=== PATIENT | male | born 1995 | race Caucasian/White ===

== ENCOUNTER 2017-02-24 16:53 | Observation (INO) | payer OTHER ==
[~2017-02-24] VITALS: Ht 172.7 cm; Wt 107.2 kg
[~2017-02-24 16:53] MED LIST: AMITRIPTYLINE H50 MG PO; DEPAKOTE500 MG PO; DOCUSATE SODIU100 MG PO; DOXYCYCLINE HY100 MG PO; ENALAPRIL MALE2.5 MG PO; FISH OIL CONC1 EACH PO; GEODON40 MG PO; GEODON80 MG PO; K-DUR20 MEQ PO; LEVOTHYROXINE137 MCG PO; METFORMIN HCL1000 M1 PO; MIRALAX255 GM PO; PROPRANOLOL HCL20 MG PO
[2017-02-24 18:01] LABS: HEMATOCRIT 28.1 % (38.0-50.0); MCHC 33.5 G/DL (30.0-36.0); MCV 92.7 FL (86-99); MEAN PLAT.VOLUME 11.2 uM^3 (9.0-12.4); PLATELET COUNT 187 K/uL (156-360); RBC DIS.WIDTH-CV 12.3 % (11.8-14.6); RBC DIS.WIDTH-SD 42.1 % (39-53); RED BLOOD COUNT 3.03 M/uL (4.00-5.50)
[2017-02-24 18:12] LABS: CHLORIDE 103 mEq/L (99-109); POTASSIUM 4.3 mEq/L (3.7-5.4); SODIUM 133 mEq/L (136-147)
[2017-02-24 18:13] LABS: GLUCOSE 125 mg/dL (70-99)
[2017-02-24 18:15] LABS: ANION GAP 10 MEQ/L (2-14)
[2017-02-24 18:17] LABS: GFR ESTIMATE (CALCULATED) > 59 mL/min/
[2017-02-24 18:18] LABS: UREA NITROGEN (BUN) 12 mg/dL (9-23)
[2017-02-24] MEDS ORDERED: ELIGARD7.5 MG SC (18:47)
[2017-02-24] MEDS ORDERED: LIPITOR20 MG PO (18:47)
[2017-02-24] MEDS ORDERED: SYNTHROID137 MCG PO (18:48)
[2017-02-24] MEDS ORDERED: FLUPHENAZINE HCL5 MG PO (18:48)
[2017-02-24] MEDS ORDERED: ENALAPRIL MALE2.5 MG PO (18:48)
[2017-02-24] MEDS ORDERED: IRON325 M1 PO (18:48)
[2017-02-24] MEDS ORDERED: ROBITUSSIN DM118 ML PO (18:49)
[2017-02-24] MEDS ORDERED: LITHIUM CARBON150 MG PO (18:50)
[2017-02-24] MEDS ORDERED: LITHIUM CARBON600 MG PO (18:50)
[2017-02-24] MEDS ORDERED: LITHIUM CARBON300 MG PO (18:50)
[2017-02-24] MEDS ORDERED: REGULOID POWDE540 G1 PO (18:51)
[2017-02-24] MEDS ORDERED: VITAMIN D31000 UNIT PO (18:51)
[2017-02-24] MEDS ORDERED: SEROQUEL400 MG PO (18:51)
[2017-02-24] MEDS ORDERED: LORAZEPAM1 MG PO (18:51)
[2017-02-24] MEDS ORDERED: DEPAKOTE250 MG PO (18:52)
[2017-02-24] MEDS ORDERED: DEPAKOTE500 MG PO (18:53)
[2017-02-24] MEDS ORDERED: GEMFIBROZIL600 MG PO (18:53)
[2017-02-24] MEDS ORDERED: PROPRANOLOL HCL10 MG PO (18:53)
[2017-02-24] MEDS ORDERED: COLACE100 MG PO (18:54)
[2017-02-24] MEDS ORDERED: TUMS500 MG PO (18:55)
[2017-02-24] MEDS ORDERED: TYLENOL REGULA325 MG PO (18:55)
[2017-02-24] MEDS ORDERED: LEVAQUIN500 MG PO (18:55)
[2017-02-24] MEDS ORDERED: PREPARATION H O28 GM PR (18:56)
[2017-02-24] MEDS ORDERED: SEROQUEL300 MG PO (18:57)
[2017-02-24 21:48] VITALS: BP 104/58
[2017-02-25] VITALS: BP 161/90
[2017-02-25 03:00] VITALS: BP 119/65
[2017-02-25 08:44] VITALS: BP 123/59
[2017-02-25] MEDS ORDERED: CEFTIN500 MG PO (11:24)
[2017-02-25] MEDS ORDERED: ZITHROMAX500 MG PO (11:24)
== END 2017-02-25 14:00 ==
LOC: EME 16:53 → EDOF 20:00 → 5EAST 20:00
DX: J18.9 Pneumonia, unspecified organism (principal); F20.0 Paranoid schizophrenia; F84.0 Autistic disorder; Q87.1 Congenital malformation syndromes predominantly associated with short stature; F31.9 Bipolar disorder, unspecified; E11.9 Type 2 diabetes mellitus without complications; F17.200 Nicotine dependence, unspecified, uncomplicated; D64.9 Anemia, unspecified; Z88.2 Allergy status to sulfonamides
CPT/HCPCS: 71020; 80048; 83605; 85027; 87040; 94640; 99281; 99285; G0378; J0456; J0696; J1650; J7030; J7050

== ENCOUNTER 2017-05-12 11:47 | Emergency (ER) | payer OTHER ==
[~2017-05-12] VITALS: Ht 175.3 cm; Wt 111.2 kg
[~2017-05-12 11:47] MED LIST changes: +CEFTIN500 MG PO; +COLACE100 MG PO; +DEPAKOTE250 MG PO; +ELIGARD7.5 MG SC; +FLUPHENAZINE HCL5 MG PO; +GEMFIBROZIL600 MG PO; +IRON325 M1 PO; +LEVAQUIN500 MG PO; +LIPITOR20 MG PO; +LITHIUM CARBON150 MG PO; +LITHIUM CARBON300 MG PO; +LITHIUM CARBON600 MG PO; +LORAZEPAM1 MG PO; +PREPARATION H O28 GM PR; +PROPRANOLOL HCL10 MG PO; +REGULOID POWDE540 G1 PO; +ROBITUSSIN DM118 ML PO; +SEROQUEL300 MG PO; +SEROQUEL400 MG PO; +SYNTHROID137 MCG PO; +TUMS500 MG PO; +TYLENOL REGULA325 MG PO; +VITAMIN D31000 UNIT PO; +ZITHROMAX500 MG PO
[2017-05-12 13:43] VITALS: BP 124/80
== END 2017-05-12 13:43 | disposition home or self-care (01) ==
LOC: EME 11:47
DX: S00.83XA Contusion of other part of head, initial encounter (principal); Y04.8XXA Assault by other bodily force, initial encounter; Z88.8 Allergy status to other drugs, medicaments and biological substances
CPT/HCPCS: 99281; 99283